=== PATIENT | male | born 1985 | race Caucasian/White ===

== ENCOUNTER 2025-08-03 13:30 | Emergency (ER) | payer MEDICAID ==
[~2025-08-03] VITALS: Ht 185.4 cm; Wt 122.6 kg
--- NOTE | 2025-08-03 14:46 | Physician Documentation ---
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 Patient states he just recently eat something today that he feels had some [place] in it and states he is now having some nausea and vomiting. Patient denies any shortness of breath or throat swelling or closure or hives or rash. He has no other concern or complaint at this time. Medication Reconciliation Allergies: Coded Allergies: [place] And Derivatives (Verified Allergy, Unknown, 08/03/25) Review of Systems Constitutional: Denies: chills, fever, weakness Eyes: Denies: pain, blurred vision ENT: Denies: ear pain, nose pain, throat pain, mouth pain Respiratory: Denies: cough, shortness of breath Cardiovascular: Denies: chest pain, palpitations Gastrointestinal: Denies: abdominal pain, nausea, vomiting Genitourinary: Denies: burning, dysuria Male Genitalia: Denies: penile discharge, testicular pain Neurological: Denies: headache, dizziness Musculoskeletal: Denies: pain, swelling Integumentary: Denies: rash, lesions Allergic/Immunologic: Denies: hives, itching Hematologic/Lymphatic: Denies: no symptoms reported Psychiatric: Denies: depression, anxiety Physical Exam Vital Signs: Temperature: 97.0, Source: Temporal, Heart Rate: 78, Respiratory Rate: 16, BP: 134/95, Pulse Oximetry: 100, Weight: 122.600 Oxygen Flow Rate: 0 Physical Exam General: Awake and Alert, no acute distress. HEENT: Conjunctiva pink, Sclera clear, Mucus Membranes moist. Neck: Supple without masses and tenderness. Resp: Unlabored. Lungs clear to auscultation bilaterally. Heart: Regular Rate and rhythm, normal S1 and S2 without murmur, rub or gallop. Abdomen: Soft and non tender no organomegaly Extremities: No cyanosis,clubbing or edema. Skin: Warm and Dry. I do not Appreciate any hives or rash. 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 Patient states he just recently eat something today that he feels had some [place] in it and states he is now having some nausea and vomiting. Patient denies any shortness of breath or throat swelling or closure or hives or rash. He has no other concern or complaint at this time. Patient was given GI cocktail and Compazine injection and patient was feeling better and was discharged home. Patient will follow up with primary care in 1-2 days if no better as needed sooner. Return to ED with any worsening, concerning or changing symptoms or difficulty breathing. Patient voiced understanding. Differential Dx:Considerations: Include: Anaphylaxis, Angioedema, Bronchospasm, Contact dermatitis, Drug reaction, Respiratory failure Departure Disposition: HOME / SELF CARE / HOMELESS Impression: Primary Impression: Food intolerance in adult Condition: Stable Discharge Instructions: Hives, [id number] Additional Instructions: Patient was given GI cocktail and Compazine injection and patient was feeling better and was discharged home. Patient will follow up with primary care in 1-2 days if no better as needed sooner. Return to ED with any worsening, concerning or changing symptoms or difficulty breathing. Patient voiced understanding. Referrals: NO PRIMARY CARE PROVIDER (PCP) Signature Scribe Signature: No scribe Attestation: No scribe LILIANA BAEZA PAC Aug 03, 2025 14:46
[2025-08-03] MEDS: LIDOcaine 2% Viscous 15ml cup MM STA (16:37)
[2025-08-03] MEDS: mag hydrox/Alum hydrox/simeth 30ml oral suspension PO STA (16:37)
[2025-08-03] MEDS: pantoprazole 40mg Tablet.DR PO STA (16:38)
[2025-08-03 16:41] VITALS: BP 138/82; PULSE 88; TEMP 97.2; O2SAT 98
[2025-08-03 16:49] VITALS: RESP 20
== END 2025-08-03 16:51 | disposition home or self-care (01) ==
LOC: ER 13:31
DX: K90.49 Malabsorption due to intolerance, not elsewhere classified (principal); R11.2 Nausea with vomiting, unspecified; Z91.018 Allergy to other foods
CPT/HCPCS: 96372; 99284; J0780

== ENCOUNTER 2025-08-24 07:06 | Emergency (ER) | payer MEDICAID ==
[~2025-08-24] VITALS: Ht 185.4 cm; Wt 121.7 kg
--- NOTE | 2025-08-24 07:15 | Physician Documentation ---
History of Present Illness General Stated Complaint: ABD PAIN Time Seen by MD: 07:12 History of Present Illness Initial Comments This is a 39-year-old gentleman who presents for evaluation of epigastric abdominal pain and too numerous to count episodes of nausea or vomiting overnight. Began yesterday. He feels that this might be related to the fact that he is intolerant to citrus and he ate a burger shortly prior to the onset of symptoms. No palliating or aggravating factors. He attempted to treat it by taking Zofran and promethazine without success because he threw up the medicines. Epigastric abdominal pain is mild to moderate in its intensity, nonradiating, not migratory. Denies any fever, chills, chest pain, difficulty breathing. Denies any concern for tobacco, alcohol or illicit substances use Medication Reconciliation Allergies: Coded Allergies: [place] And Derivatives (Verified Allergy, Unknown, 08/24/25) Review of Systems ROS 10 point review of systems was performed and unless noted above in HPI is negative for acute process/complaint. Physical Exam Physical Exam Physical Exam GENERAL: Awake, alert, oriented, GCS 15, no apparent distress, non-toxic a ppearing, answers questions, follows commands appropriately. Examined in triage HEENT: Atraumatic, normocephalic, pupils equal, extraocular muscles intact, sclerae anicteric, mucus membranes moist, oropharynx is clear, no stridor. NECK: supple, full active range of motion, trachea midline, no thyromegaly, no lymphadenopathy, no JVD. CARDIOVASCULAR: regular rate/rhythm, no murmurs/gallops/rubs, Pulses are 2+ in all extremities and symmetric. Capillary refill less than 2 seconds. PULMONARY: Nonlabored, good air movement ,no respiratory distress, speaking in full sentences, clear to auscultation bilaterally, no wheezing, no ronchi, no rales, no accessory muscle use. GASTROINTESTINAL: Soft, non-tender, non-distended, normal active bowel sounds, no organomegaly, no pulsatile masses, no CVA tenderness. NEUROLOGIC: Lucid with normal mental status. Normal facial symmetry. Moves all extremities symmetrically and with purpose. No truncal ataxia. Speech is fluid without evidence of dysarthria or aphasia, no focal deficits appreciated. MUSCULOSKELETAL: There is full range of motion of all extremities. There is no joint pain or joint swelling or joint erythema. There is no muscle pain or tenderness or swelling. EXTREMITIES: warm, well-perfused, no cyanosis, no clubbing, no edema, no acute deformities. Skin: warm, dry, no rashes or lesions, no jaundice, no petechiae orpurpura. No ecchymosis. PSYCHIATRIC: Normal affect, normal insight, normal concentration. Focused exam: [No guarding or rebound] Progress Results/Orders Results/Orders Orders - LOUISA VAZQUEZ DO Cbc/Diff (08/24/25 07:12) Lipase (08/24/25 07:12) MG (08/24/25 07:12) Monitor (08/24/25 07:12) Saline Lock (08/24/25 07:12) Ct Abdomen Pelvis (08/24/25 07:12) CMP (08/24/25 07:12) Completed Orders - LOUISA VAZQUEZ DO Normal Saline 1000ml (0.9% Sodium Chlori (08/24/25 07:15) Prochlorperazine Inj (Compazine Inj) (08/24/25 07:15) Mag & Alum Hydrox/Simeth Susp (Maalox Or (08/24/25 07:35) Dicyclomine Capsule (Bentyl Capsule) (08/24/25 07:35) Lidocaine 2% Viscous (Xylocaine 2% Visco (08/24/25 07:35) Prochlorperazine Inj (Compazine Inj) (08/24/25 07:35) Medications Received in ER Medications (Trade) Dose Ordered Sig/Blanca Route PRN Reason Start Time Stop Time Status Last Admin Dose Admin (Maalox oral suspension) 30 ml ONCE ONCE PO 08/24/25 07:35 08/24/25 07:36 DC 08/24/25 07:39 30 ML (Bentyl capsule) 10 mg ONCE ONCE PO 08/24/25 07:35 08/24/25 07:36 DC 08/24/25 07:39 10 MG (Compazine inj) 10 mg ONCE ONCE IM 08/24/25 07:35 08/24/25 07:36 DC 08/24/25 07:39 10 MG Vital Signs 08/24/25 08/24/25 07:09 07:32 Temp 98.9 Pulse 110 Resp 16 16 B/P (MAP) 125/78 Pulse Ox 97 O2 Flow Rate 0 Medical Decision Making Additional information obtaine: old records Findings Facility Status: ED Holds, RME process The plan was discussed with the patient, who demonstrates clear understanding of the plan and is in agreement with the plan unless otherwise noted in the chart. All questions have been answered, all concerns were addressed unless otherwise documented. I was available throughout their ED stay for frequent reassessment and questions. Differential Diagnoses (considered and possible or likely): [Differential diagnosis considered includes acute appendicitis, acute cholecystitis, pancreatitis, gastritis, PUD, diverticulitis, mesenteric ischemia, abdominal aortic aneurysm, bowel obstruction, enteritis, colitis, fecal impaction, volvulus, IBS, inflammatory bowel disease, specific food intolerance, peritonitis, perforated viscous, malignancy, UTI, abscess, and abdominal pain NOS. History, physical exam, and workup exclude many of the more serious causes listed above. ] ??Differential Diagnoses (considered and unlikely, not requiring evaluation currently): [Aortic/great vessels dissection was considered but it is unlikely based on absence of ripping, tearing, migratory chest pain, absence of syncope or focal neurologic deficits, physical examination indicating equal and symmetric pulses.] MDM Data Please see [facility] for the following: Independent Historians and external Records Review. Historian: [Patient] Independent Historians: ?[Record review] Medication Management: [Reviewed medication list] Social History and determinants: [Reviewed] Please see the body of the note for the following: Any independent interpretatio ns of ECG, imaging studies. All vitals signs/haemodynamics, ordered tests were independently reviewed and interpreted by myself. Nursing triage complaint and vitals reviewed, additional nursing notes were reviewed as available and I agree unless otherwise noted or documented in contradiction in the chart Vital Signs: Independently reviewed Labs: Independently interpreted Imaging: Independently interpreted Old Medical Records: Independently reviewed, see HPI for relevant summary and information Pulse Oximetry: [95%] interpreted as [normal on room air] by me [Job Honer: [Regular Rate, Regular rhythm, no ectopy, NSR] reviewed and interpreted by me] Additionally notably showing: [Hemodynamically stable] Tests considered but not ordered include: [Laboratory workup and imaging has been considered, however the patient declines] Social Determinants of Health Impact: Patient was evaluated in [facility], [facility] [place] to healthcare due to below par ratio of patient to medical providers. [] Comorbid Conditions Impacting Present Evaluation and Care/Treatment: [None] Management Discussions with other Healthcare Providers: [None] Treatment and Disposition Medication Management (Given or considered): [Antiemetics, fluids has been considerably the patient declined]. See EMR for details Consideration for Hospitalization/Escalation/Deescalation of Care: Admission for observation has been considered, [however the patient is able to tolerate p.o., their symptoms are controlled, they are able to rely on oral medications, and their chief complaint/diagnosis can be managed on outpatient basis.] ?ED Course:?[On reassessment he is feeling markedly better, tolerated p.o..] ?Shared decision making:?[Patient is hemodynamically stable for discharge home with follow with their primary care provider. [ ] Specific and cautious return precautions provided and discussed with full understanding. Any incidental findings were also discussed and follow up recommendations given. [] All questions answered. Patient/family were able to verbalize back return precautions. Patient/family agree to plan. Copies of imaging and laboratory studies were provided.] Code status:?FULL Please see the full Electronic Medical Record for full details of nursing documentation, medications list, other records of complete past medical history and conditions, vital signs, laboratory studies, and any radiologic study interpretations by radiologists. Portions of this note were completed using [employer] dictation software and as a result there may exist minor errors in spelling. I have reviewed elements of past family and social history and agree as included in note. Differential Diagnosis See the body of main note Departure Disposition: 01 HOME / SELF CARE / HOMELESS Impression: Primary Impression: Food intolerance in adult Additional Impression: Vomiting Condition: Improved Discharge Instructions: Nausea and Vomiting, Adult Referrals: NO PRIMARY CARE PROVIDER (PCP) Education Educated: Patient Educated regarding: diagnosis, treatment, prognosis, need for follow up Signature Scribe Signature: No scribe Attestation: Date: Aug 24, 2025 Time: 07:15 This note accurately reflects clinical decisions, work performed by myself, DO GEORGE Shoemaker NICHOLAS M DO Aug 24, 2025 07:15
[2025-08-24] MEDS: normal saline 1000ML IV soln IVB ONE (07:36)
[2025-08-24] MEDS: LIDOcaine 2% Viscous 15ml cup MM ONE (07:36)
[2025-08-24] MEDS: mag hydrox/Alum hydrox/simeth 30ml oral suspension PO ONE (07:39)
[2025-08-24 08:57] VITALS: BP 142/82; PULSE 88; RESP 16; TEMP 98.9; O2SAT 99
== END 2025-08-24 09:00 | disposition home or self-care (01) ==
LOC: ER 07:06
DX: K90.49 Malabsorption due to intolerance, not elsewhere classified (principal); R11.10 Vomiting, unspecified
CPT/HCPCS: 96372; 99283; J0780